=== PATIENT | male | born 1945 | race Two or more races ===

== ENCOUNTER → 2016-12-16 | Outpatient (CLI) | payer OTHER | END | disposition home or self-care (01) | LOC: RADPV 11:04 | PROVIDERS: ATTEND Family Medicine | DX: M20.11 Hallux valgus (acquired), right foot (principal); M76.61 Achilles tendinitis, right leg; M25.871 Other specified joint disorders, right ankle and foot; R26.89 Other abnormalities of gait and mobility; I70.201 Unspecified atherosclerosis of native arteries of extremities, right leg ==